=== PATIENT | female | born 1945 | race Caucasian/White ===

== ENCOUNTER → 2023-08-21 14:57 | Outpatient (REF) | payer OTHER, SELFPAY | LOC: RAD 14:57 | PROVIDERS: ATTENDING PHYSICIAN Advanced Practice Midwife; FAMILY PHYSICIAN Family Medicine | DX: N95.0 Postmenopausal bleeding (principal) | CPT/HCPCS: 76830 ==

== ENCOUNTER → 2023-09-11 13:03 | Outpatient (REF) | payer OTHER, SELFPAY | LOC: DHVS 13:03 | PROVIDERS: ATTENDING PHYSICIAN Surgery Vascular Surgery; FAMILY PHYSICIAN Family Medicine | DX: I77.0 Arteriovenous fistula, acquired (principal) | CPT/HCPCS: 93990 ==

== ENCOUNTER → 2023-09-21 14:50 | Outpatient (REF) | payer OTHER, SELFPAY | LOC: RAD 14:50 | PROVIDERS: ATTENDING PHYSICIAN Obstetrics & Gynecology Gynecologic Oncology; FAMILY PHYSICIAN Family Medicine | DX: D63.1 Anemia in chronic kidney disease (principal); N18.30 Chronic kidney disease, stage 3 unspecified; C54.1 Malignant neoplasm of endometrium; I48.0 Paroxysmal atrial fibrillation; J44.9 Chronic obstructive pulmonary disease, unspecified | CPT/HCPCS: 71250; 74176 ==

== ENCOUNTER 2023-09-23 06:07 | Day surgery (SDC) | payer OTHER, SELFPAY ==
--- NOTE | 2023-09-16 14:14 | PTCARENOTE ---
Abnormal ECG OK per Dr. Barcenas.
[2023-09-23] VITALS (10 sets, daily range): BP systolic 86–167; BP diastolic 41–111; BMI 36.6
[2023-09-23 06:57] LABS: Hematocrit 29.9 % (37.0-47.0); Hemoglobin 9.8 g/dL (12.0-16.0); Mean Corp Hgb Conc. 32.8 g/dL (33.0-37.0); Mean Corpuscular Hgb 35.3 pg (27.0-31.0); Mean Corpuscular Volume 107.6 fL (81.0-99.0); Platelet Count 157 10^3/uL (130-400); Red Blood Cell Count 2.78 10^6/uL (4.20-5.40); Red Cell Dist. Width 15.2 % (11.5-14.5); White Blood Cell Count 7.5 10^3/uL (4.8-10.8)
--- NOTE | 2023-09-23 06:58 | W.SUR.PREOP ---
Pre-Operative Surgical Note
-
I have examined this patient prior to the performance of the scheduled procedure.
The patient's condition is unchanged from the time of the current History and
Physical and the patient is able to undergo the scheduled procedure.
[2023-09-23 07:06] LABS: INR 1.31; PT 16.1 Sec (11.4-14.6)
[2023-09-23 07:21] LABS: Blood Urea Nitrogen 27 mg/dl (7-17); Calcium 8.9 mg/dl (8.4-10.2); Carbon Dioxide 33 mmol/L (22-30); Estimated Creatinine Clearance 10 ml/min; Glucose 98 mg/dl (70-99); Potassium 5.1 mmol/L (3.5-5.1); Sodium 132 mmol/L (135-145); eGFR 9.18
[2023-09-23 07:30] LABS: Chloride 94 mmol/L (98-107)
--- NOTE | 2023-09-23 08:24 | W.SUR.POST ---
Surgical Immediate Post Op
Note
Pre Op Diagnosis: ESRD
Post Op Diagnosis: ESRD
Procedure Performed: Left upper extremity fistulogram and central venogram with angioplasty to in-stent stenosis and outflow vein stenosis
Primary Surgeon: Josep Rae MD
Secondary Surgeons: N/A
Anesthesia: GETA
Estimated Blood Loss: Less than 5 cc
Fluids: See anesthesia flowsheet
Drains/Shunts: N/A
Specimens/Cultures: N/A
Doppler/Duplex/Angio (Y/N): Y
Complications: None
Operative Findings: Positive thrill following fistulogram
[2023-09-23] MEDS: DILAUDID 0.5 MG IV (08:53)
--- NOTE | 2023-09-23 09:06 | OR.RPT ---
Operative Report
Operative Report
PROCEDURE DATE: 09/23/2023
Preoperative diagnosis:
1. End-stage renal disease on hemodialysis.
2. Prolonged bleeding after hemodialysis, outflow vein stenosis.
Postoperative diagnosis: Same
Procedure:
1. Left upper extremity fistulogram and central venogram.
2. Balloon angioplasty of outflow vein/in-stent restenosis with 8 mm angioplasty balloon.
Surgeon: Butch
Histology Teacher: None
Complications: None
Anesthesia: General, LMA
Fluoroscopy:
2.6 min
8 mGy
1.61 Gy.cm2
Indications for procedure:
Patient on hemodialysis for end-stage renal disease. Prolonged bleeding after hemodialysis. Prior placed stent, prior angioplastied as well. Concern for recurrent stenosis at that location or in that vicinity. Ultrasound indicated that as well.
Risk/benefits/alternatives of fistulogram fully discussed. Patient understood all wish to proceed.
Description of procedure:
Patient was identified, brought to the operating room. Placed on the table in the supine position. After the adequate administration of anesthesia, the patient was prepped and draped in the standard surgical fashion. A standard preoperative
timeout was undertaken and everybody was in agreement with the plan.
The left upper extremity fistula was punctured and a central facing direction under direct duplex ultrasound guidance using micropuncture kit. I initially difficulty advancing my 0.035 inch wire. I therefore obtained a fistulogram through the
micropuncture sheath. This demonstrated there was a severe stenosis just beyond the micropuncture sheath leading into the stent area. In addition at the edge of the stent distally there was a severe stenosis leading into the che[place]hue[place] vein.
Therefore I then advanced my 0.035 inch wire as far as I could (somewhat coiled). I then exchanged for a 6 Tajik sheath. I gave the patient 3000 units of intravenous heparin. I then used a glide catheter and a flopping of hydrophilic wire. I
was then able to gain more central access/traverse the area of severe stenosis. I advanced my catheter. Perform central venogram that demonstrated patent central veins with no evidence of central venous stenosis. At this point I exchanged for a
0.035 inch Storq wire. I then performed balloon angioplasty of the stenotic area with an 8 mm angioplasty balloon. (8 mm x 6 cm angioplasty balloon with 2 overlapping inflations). I was able to completely resolve the waist at both inflations with
the balloon. Completion angiogram now demonstrated excellent result with complete resolution of the stenoses. At this point is very satisfied. I then compressed the fistula and obtained a reflux fistulogram. This demonstrated a widely patent
arterial anastomosis. At this point is very satisfied. My wires and catheters were all withdrawn. A 4-0 Monocryl pursestring stitch was placed around the sheath entry site and this was tied down as the sheath was withdrawn. Manual pressure was
also applied to the puncture site. Hemostasis was achieved. The patient tolerated the procedure well.
== END 2023-09-23 10:23 | disposition home or self-care (01) ==
LOC: CATH 06:07
PROVIDERS: ATTENDING PHYSICIAN Surgery Vascular Surgery; FAMILY PHYSICIAN Family Medicine; OTHER PHYSICIAN Internal Medicine
DX: T82.856A Stenosis of peripheral vascular stent, initial encounter (principal); Y83.2 Surgical operation with anastomosis, bypass or graft as the cause of abnormal reaction of the patient, or of later complication, without mention of misadventure at the time of the procedure; Z87.891 Personal history of nicotine dependence; I13.2 Hypertensive heart and chronic kidney disease with heart failure and with stage 5 chronic kidney disease, or end stage renal disease; N18.6 End stage renal disease; I50.9 Heart failure, unspecified; Z99.2 Dependence on renal dialysis
CPT/HCPCS: 36902; 80048; 85027; 85610; 85730; C1725; C1769; C1894; Q9967

== ENCOUNTER → 2023-09-28 09:46 | Outpatient (REF) | payer OTHER, SELFPAY | LOC: PET 09:46 | PROVIDERS: ATTENDING PHYSICIAN Obstetrics & Gynecology Gynecologic Oncology | DX: C54.1 Malignant neoplasm of endometrium (principal) | CPT/HCPCS: 78815; A9552 ==

== ENCOUNTER 2023-09-29 14:43 | Inpatient (IN) | payer OTHER, SELFPAY ==
[2023-09-29] VITALS (10 sets, daily range): BP systolic 100–160; BP diastolic 57–82; BMI 42.6; BMI 41.3
--- NOTE | 2023-09-29 10:57 | ED.GENMED ---
History of Present Illness
<Haydee Mallory AD WRITER - Last Filed: 09/29/23 15:49>
General
Chief Complaint: Breathing Problem
Source: patient and family (Daughter at bedside)
Exam Limitations: none
Time Seen by Provider: 09/29/23 10:53
Nursing documentation reviewed up to this point in time: agreed with
Travel History
Have you had any contact with someone who has COVID-19?: No
Do you have any symptoms of coronavirus? Fever > 100 degrees, chills, cough, shortness of breath, sore throat, loss of taste or smell, muscle aches, or headache?: Yes
Symptoms:: cough.
History of Present Illness
History of Present Illness:
78-year-old female from home with history of CVA, ICH, COPD on home oxygen, A-fib on Eliquis, CHF, HTN, hemodialysis, hypothyroid, endometrial cancer diagnosed this year, left upper extremity dialysis shunt, LUE fistulogram and venogram with balloon
angioplasty of the outflow vein/in-stent restenosis on 09/23/2023 presents stating she has had increasing cough for the past week and past few days it has become productive with brownish-yellow phlegm. Her breathing has become more labored even
sitting and washing herself. She denies fever or chills. Denies nausea or vomiting.
She was supposed to go to dialysis today but she didn't feel well enough so came here for evaluation.
Past History
<Haydee Mallory AD WRITER - Last Filed: 09/29/23 15:49>
Past History
ED Past Medical History: Arrthythmia (Atrial fib), CHF, COPD, HTN, Renal failure, Hypothyroidism, Psychiatric (Depression) and Other (Chronic back pain, kidney stones, arthritis)
ED Past Surgical History: Cholecystectomy and Orthopedic (Left arm Carpal tunnel surgery, laminectomy L5 , and again for scar tissue)
Social History
Tobacco: Former smoker
Alcohol: None
Drug: None
Personal:
Living: with family
Employment: Retired
Family History
Family History: Other (Mother with kidney cancer)
Review of Systems
<Haydee Mallory, AD WRITER - Last Filed: 09/29/23 15:49>
Review of Systems
Allergies reviewed?: Yes
All Other Systems: ROS reviewed and negative except as documented in HPI and ROS
Constitutional: Reports fatigue; Denies fever
Respiratory: Reports cough and trouble breathing
Cardiac: Denies chest pain
ABD/GI: Denies abdominal pain, nausea, vomiting or diarrhea
: Denies dysuria, frequency or difficulty voiding
Musculoskeletal: Reports no symptoms
Skin: Reports other (Blister on foot)
Neurological: Reports no symptoms
Phy Exam
<Haydee V. Day, AD WRITER - Last Filed: 09/29/23 15:49>
Physical Exam
Physical Exam:
GENERAL: No acute distress. A&Ox3. Morbid obesity
CONSTITUTIONAL: Afebrile.
EYES: Clear, conjunctivae normal
ENMT: moist mucus membranes, Pharynx nl
RESPIRATORY: Regular respirations, nonlabored, lungs clear.
CARDIOVASCULAR: Regular rate and rhythm, tachycardia, no murmurs, no rubs.
GI: Soft, nontender, normal BS
MUSCULOSKELETAL: Moves with ease. Well perfused.
SKIN: Warm, dry, pink
PSYCH: Normal mood and affect. Well kept, interactive and appropriate
NEUROLOGIC: Awake, alert and oriented. No focal neurological deficits
Scores
<Haydee Mallory, AD WRITER - Last Filed: 09/29/23 15:49>
Heart Failure Risk
Heart Failure Risk Score: Not Applicable
Course
<Haydee V. [place], AD WRITER - Last Filed: 09/29/23 15:49>
Orders/Labs/Results
Orders:
Orders
09/29/23 Breakfast
Cholesterol Lowering
Fluid Restriction: 1200 mL/day (40 oz)
Cholesterol Lowering: Sodium, 2 Gram
09/29/23 11:24
CR Chest - 2 Views Urgent
Comment:
Reason For Exam: productive cough
09/29/23 11:38
Complete Blood Count/With Diff Urgent
Comprehensive Metabolic Panel Urgent
NT-proBNP Urgent
Comment: ADD ON
09/29/23 12:23
Add On- LAB Urgent
Tests Added?: BNP
09/29/23 12:25
Potassium Urgent
09/29/23 12:33
Ipratropium/Albuterol Sulfate [Duoneb] 3 ml INH R NOW STA
09/29/23 12:35
Electrocardiogram (*1) Urgent
Reason for Study: Abnormal EKG
EKG- Treatment ONCE
09/29/23 12:38
NEPHROLOGY CONSULT Urgent
Consulting Provider: Cameron Crow
Was physician already notified: Yes
Reason for consult: needs dialysis
09/29/23 13:02
Lactic Acid Q4H
Comment: CANCEL 2nd LACTIC ACID IF 1st LACTIC ACID IS LESS THAN 2
Blood Culture Q30M
JORDY Source: Blood/Venous
Specimen Description:
Blood Culture Q30M
JORDY Source: Blood/Venous
Specimen Description:
09/29/23 13:33
Admit/Transfer Patient As Directed
Co-Sign Provider:
Level of Care: Inpatient admission
Assign to:: Telemetry
Physician / Group: alexa foster
Diagnosis: CHF
Reason for Telemetry: Subacute Heart Failure
Date to Stop Telemetry: 10/01/23
Time to Stop Telemetry: 11:00
Reason for Hospitalization: chf
Expected length of stay greater than two midnights?: Yes
ELOS- Estimated Length of Stay in days: 3
I certify the patient meets the requirements for IP care: Yes
09/29/23 13:35
Code Status As Directed
Resuscitation Status: Do not resuscitate
Reached after discussion with pt or family/Healthcare POA: Yes
DNR Bracelet Application ONCE
09/29/23 13:44
Hemodialysis treatment As Directed
Treatment date:: 09/30/23
Treatment type: Hemodialysis
Ultrafiltration (kg): 2.5kg
Treatment time (duration): 3 hours 30 minutes
Use dialysis access:: AVF
Dialyzer:: Optiflux 160
Blood flow rate minimum: 350
Blood flow rate maximum: 400
Dialysis flow rate: 600 mL/min
Dialysate temperature: 35 degrees Celsius
Sodium (Na): 140
Potassium (K): 2
Calcium (Ca): 2.5
Bicarbonate (HCO3): 35
09/29/23 13:55
COVID-19 Antigen Stat
Source: Nasal Swab
Influenza A+B Rapid Molecular Routine
JORDY Source: Nasal Swab
Specimen Description:
09/29/23 14:00
Flush (0.9% Sodium Chloride) [Flush (Nss)] See Dose Instructions IV PER PROTOCOL
09/29/23 15:43
Ipratropium/Albuterol Sulfate [Duoneb] 3 ml INH R Q4HPRN PRN
Ketoconazole [Nizoral 2% Cream] 1 applic TOPICAL DAILY PRN
Lidocaine 2.5%/Prilocaine 2.5% [Emla Cream] DOSE gram TOPICAL DAILY PRN
Morphine Sulfate Extended Rel. [Ms Contin (Extended Release)] 15 mg PO Q12H
Oxycodone [Roxicodone] 5 mg PO QID@08,14,20,0200
tolnaftate 1 applic TOPICAL BID PRN
09/29/23 15:43
HF DIETARY CONSULT Routine
HF EDUCATOR CONSULT Routine
Comment:
Sputum Culture [Respiratory Culture/Gram Stain] Routine
JORDY Source: Sputum
Specimen Description:
Activity As Directed
Activity Level: As Tolerated
Intake/ Output As Directed
Frequency: Per unit guidelines
Patient Education As Directed
Type: CHF folder
Comment: give on admission. Document in Interdisciplinary Education record
Sleep Apnea Assessment by RN As Directed
Comment:
Physician Instructions:
Vital Signs As Directed
Frequency: Other
Additional Instructions:: Q12 or per unit guidelines if more frequent.
Weight As Directed
Frequency: Daily
Type of Scale: Standing Scale
Comment: Daily morning weight. If unable to stand, use balanced bed scale.
Weight As Directed
Frequency: Once
Type of Scale: Standing Scale
Comment: Upon Admission. If unable to stand, use balanced bed scale.
Pulse Ox/cont/shift [RESP] Routine
Quantity: 1
Special Instructions: Daily pulse oximetry at rest. If greater than 92% at rest also obtain pulse oximetry
while ambulating as tolerated.
Pt Eval And Treat Routine
Activity Level: As Tolerated
09/29/23 20:00
Apixaban [Eliquis] 5 mg PO BID
Calcium Acetate [Phoslo] 1,334 mg PO BID
Carvedilol [Coreg] 3.125 mg PO BID
Duloxetine Delayed Release [Cymbalta Delayed Release] 60 mg PO BID
09/29/23 22:00
Renal Cap [Nephrocap] 1 capsule PO HS
09/30/23 06:00
Basic Metabolic Panel IN AM
Cardiovascular Evaluation IN AM
Complete Blood Count/No Diff IN AM
Sikwb-Qorh-Ypgndap IN AM
Magnesium IN AM
TSH Reflex To Free T4 IN AM
09/30/23 07:00
Complete Blood Count/No Diff Urgent
Electrolytes Urgent
Comment: pre-Hemodialysis lab, to be drawn by HD nurse
Levothyroxine [Synthroid] 100 mcg PO DAILY@0700
09/30/23 08:00
Albumin Human 25% 50 ml [Flexbumin 25% For Hemodialysis] 12.5 grams IV HD-Q1HPRN PRN
Docusate Sodium [Colace] 100 mg PO DAILY
Epoetin Paco-Epbx [Retacrit] 10,000 units IV HD-ONCE ONE
Mannitol 12.5 grams IV HD-Q1HPRN PRN
Omeprazole Suspension [Prilosec Baby Oral Suspension] 20 mg PO DAILY
Polyethylene Glycol Powder [Miralax] 17 grams PO DAILY
Sodium Chloride [Sodium Chloride 4 Meq/ml For Hemodialysis] 10 ml IV HD-Q1HPRN PRN
10/01/23 06:00
Basic Metabolic Panel IN AM
Complete Blood Count/No Diff IN AM
10/01/23 11:00
DC Protocol for Telemetry ONCE
10/02/23 06:00
Basic Metabolic Panel IN AM
Complete Blood Count/No Diff IN AM
10/03/23 06:00
Complete Blood Count/No Diff IN AM
Abnormal Lab Results
09/29/23
11:38
RBC 2.74 L 10^6/uL
(4.20-5.40)
Hgb 9.6 L g/dL
(12.0-16.0)
Hct 28.6 L %
(37.0-47.0)
MCV 104.4 H fL
(81.0-99.0)
MCH 35.0 H pg
(27.0-31.0)
RDW 15.3 H %
(11.5-14.5)
Abs Immat Gran (auto) 0.1 H 10^3/uL
(0-0.05)
Absolute Neuts (auto) 7.4 H 10^3/uL
(1.4-6.5)
Absolute Lymphs (auto) 1.0 L 10^3/uL
(1.2-3.4)
Absolute Monos (auto) 0.8 H 10^3/uL
(0.1-0.6)
Neutrophils % 79.4 H %
(42.2-75.2)
Lymphocytes % 10.5 L %
(20.5-51.1)
Sodium 128 L mmol/L
(135-145)
Chloride 89 L mmol/L
(98-107)
BUN 67 H mg/dl
(7-17)
Creatinine 7.4 H* mg/dL
(0.6-1.0)
Glucose 128 H mg/dl
(70-99)
Total Bilirubin 1.4 H mg/dl
(0.2-1.3)
AST 52 H U/L
(14-36)
Alkaline Phosphatase 133 H U/L
(38-126)
09/29/23 11:38
09/29/23 12:25
Vital Signs
Initial and Last Documented VS:
Initial Vital Signs
Temp Pulse Resp BP Pulse Ox
98 F 123 24 160/82 98
09/29/23 10:19 09/29/23 10:19 09/29/23 10:19 09/29/23 10:19 09/29/23 10:19
Last Documented Vital Signs
Temp Pulse Resp BP Pulse Ox
98 F 93 18 107/67 100
09/29/23 10:19 09/29/23 14:33 09/29/23 14:33 09/29/23 14:33 09/29/23 14:33
Leidalt;Maulik Riggins DO - Last Filed: 09/29/23 12:40>
Orders/Labs/Results
Orders:
Orders
09/29/23 Breakfast
Cholesterol Lowering
Fluid Restriction: 1200 mL/day (40 oz)
Cholesterol Lowering: Sodium, 2 Gram
09/29/23 11:24
CR Chest - 2 Views Urgent
Comment:
Reason For Exam: productive cough
09/29/23 11:38
Complete Blood Count/With Diff Urgent
Comprehensive Metabolic Panel Urgent
NT-proBNP Urgent
Comment: ADD ON
09/29/23 12:23
Add On- LAB Urgent
Tests Added?: BNP
09/29/23 12:25
Potassium Urgent
09/29/23 12:33
Ipratropium/Albuterol Sulfate [Duoneb] 3 ml INH R NOW STA
09/29/23 12:35
Electrocardiogram (*1) Urgent
Reason for Study: Abnormal EKG
EKG- Treatment ONCE
09/29/23 12:38
NEPHROLOGY CONSULT Urgent
Consulting Provider: Cameron Crow
Was physician already notified: Yes
Reason for consult: needs dialysis
09/29/23 13:02
Lactic Acid Q4H
Comment: CANCEL 2nd LACTIC ACID IF 1st LACTIC ACID IS LESS THAN 2
Blood Culture Q30M
JORDY Source: Blood/Venous
Specimen Description:
Blood Culture Q30M
JORDY Source: Blood/Venous
Specimen Description:
09/29/23 13:33
Admit/Transfer Patient As Directed
Co-Sign Provider:
Level of Care: Inpatient admission
Assign to:: Telemetry
Physician / Group: alexa foster
Diagnosis: CHF
Reason for Telemetry: Subacute Heart Failure
Date to Stop Telemetry: 10/01/23
Time to Stop Telemetry: 11:00
Reason for Hospitalization: chf
Expected length of stay greater than two midnights?: Yes
ELOS- Estimated Length of Stay in days: 3
I certify the patient meets the requirements for IP care: Yes
09/29/23 13:35
Code Status As Directed
Resuscitation Status: Do not resuscitate
Reached after discussion with pt or family/Healthcare POA: Yes
DNR Bracelet Application ONCE
09/29/23 13:44
Hemodialysis treatment As Directed
Treatment date:: 09/30/23
Treatment type: Hemodialysis
Ultrafiltration (kg): 2.5kg
Treatment time (duration): 3 hours 30 minutes
Use dialysis access:: AVF
Dialyzer:: Optiflux 160
Blood flow rate minimum: 350
Blood flow rate maximum: 400
Dialysis flow rate: 600 mL/min
Dialysate temperature: 35 degrees Celsius
Sodium (Na): 140
Potassium (K): 2
Calcium (Ca): 2.5
Bicarbonate (HCO3): 35
09/29/23 13:55
COVID-19 Antigen Stat
Source: Nasal Swab
Influenza A+B Rapid Molecular Routine
JORDY Source: Nasal Swab
Specimen Description:
09/29/23 14:00
Flush (0.9% Sodium Chloride) [Flush (Nss)] See Dose Instructions IV PER PROTOCOL
09/29/23 15:43
Ipratropium/Albuterol Sulfate [Duoneb] 3 ml INH R Q4HPRN PRN
Ketoconazole [Nizoral 2% Cream] 1 applic TOPICAL DAILY PRN
Lidocaine 2.5%/Prilocaine 2.5% [Emla Cream] DOSE gram TOPICAL DAILY PRN
Morphine Sulfate Extended Rel. [Ms Contin (Extended Release)] 15 mg PO Q12H
Oxycodone [Roxicodone] 5 mg PO QID@08,14,20,0200
tolnaftate 1 applic TOPICAL BID PRN
09/29/23 15:43
HF DIETARY CONSULT Routine
HF EDUCATOR CONSULT Routine
Comment:
Sputum Culture [Respiratory Culture/Gram Stain] Routine
JORDY Source: Sputum
Specimen Description:
Activity As Directed
Activity Level: As Tolerated
Intake/ Output As Directed
Frequency: Per unit guidelines
Patient Education As Directed
Type: CHF folder
Comment: give on admission. Document in Interdisciplinary Education record
Sleep Apnea Assessment by RN As Directed
Comment:
Physician Instructions:
Vital Signs As Directed
Frequency: Other
Additional Instructions:: Q12 or per unit guidelines if more frequent.
Weight As Directed
Frequency: Daily
Type of Scale: Standing Scale
Comment: Daily morning weight. If unable to stand, use balanced bed scale.
Weight As Directed
Frequency: Once
Type of Scale: Standing Scale
Comment: Upon Admission. If unable to stand, use balanced bed scale.
Pulse Ox/cont/shift [RESP] Routine
Quantity: 1
Special Instructions: Daily pulse oximetry at rest. If greater than 92% at rest also obtain pulse oximetry
while ambulating as tolerated.
Pt Eval And Treat Routine
Activity Level: As Tolerated
09/29/23 20:00
Apixaban [Eliquis] 5 mg PO BID
Calcium Acetate [Phoslo] 1,334 mg PO BID
Carvedilol [Coreg] 3.125 mg PO BID
Duloxetine Delayed Release [Cymbalta Delayed Release] 60 mg PO BID
09/29/23 22:00
Renal Cap [Nephrocap] 1 capsule PO HS
09/30/23 06:00
Basic Metabolic Panel IN AM
Cardiovascular Evaluation IN AM
Complete Blood Count/No Diff IN AM
Pjitx-Reme-Zubgwop IN AM
Magnesium IN AM
TSH Reflex To Free T4 IN AM
09/30/23 07:00
Complete Blood Count/No Diff Urgent
Electrolytes Urgent
Comment: pre-Hemodialysis lab, to be drawn by HD nurse
Levothyroxine [Synthroid] 100 mcg PO DAILY@0700
09/30/23 08:00
Albumin Human 25% 50 ml [Flexbumin 25% For Hemodialysis] 12.5 grams IV HD-Q1HPRN PRN
Docusate Sodium [Colace] 100 mg PO DAILY
Epoetin Paco-Epbx [Retacrit] 10,000 units IV HD-ONCE ONE
Mannitol 12.5 grams IV HD-Q1HPRN PRN
Omeprazole Suspension [Prilosec Baby Oral Suspension] 20 mg PO DAILY
Polyethylene Glycol Powder [Miralax] 17 grams PO DAILY
Sodium Chloride [Sodium Chloride 4 Meq/ml For Hemodialysis] 10 ml IV HD-Q1HPRN PRN
10/01/23 06:00
Basic Metabolic Panel IN AM
Complete Blood Count/No Diff IN AM
10/01/23 11:00
DC Protocol for Telemetry ONCE
10/02/23 06:00
Basic Metabolic Panel IN AM
Complete Blood Count/No Diff IN AM
10/03/23 06:00
Complete Blood Count/No Diff IN AM
Abnormal Lab Results
09/29/23
11:38
RBC 2.74 L 10^6/uL
(4.20-5.40)
Hgb 9.6 L g/dL
(12.0-16.0)
Hct 28.6 L %
(37.0-47.0)
MCV 104.4 H fL
(81.0-99.0)
MCH 35.0 H pg
(27.0-31.0)
RDW 15.3 H %
(11.5-14.5)
Abs Immat Gran (auto) 0.1 H 10^3/uL
(0-0.05)
Absolute Neuts (auto) 7.4 H 10^3/uL
(1.4-6.5)
Absolute Lymphs (auto) 1.0 L 10^3/uL
(1.2-3.4)
Absolute Monos (auto) 0.8 H 10^3/uL
(0.1-0.6)
Neutrophils % 79.4 H %
(42.2-75.2)
Lymphocytes % 10.5 L %
(20.5-51.1)
Sodium 128 L mmol/L
(135-145)
Chloride 89 L mmol/L
(98-107)
BUN 67 H mg/dl
(7-17)
Creatinine 7.4 H* mg/dL
(0.6-1.0)
Glucose 128 H mg/dl
(70-99)
Total Bilirubin 1.4 H mg/dl
(0.2-1.3)
AST 52 H U/L
(14-36)
Alkaline Phosphatase 133 H U/L
(38-126)
09/29/23 11:38
09/29/23 12:25
Vital Signs
Initial and Last Documented VS:
Initial Vital Signs
Temp Pulse Resp BP Pulse Ox
98 F 123 24 160/82 98
09/29/23 10:19 09/29/23 10:19 09/29/23 10:19 09/29/23 10:19 09/29/23 10:19
Last Documented Vital Signs
Temp Pulse Resp BP Pulse Ox
98 F 93 18 107/67 100
09/29/23 10:19 09/29/23 14:33 09/29/23 14:33 09/29/23 14:33 09/29/23 14:33
<Haydee Mallory AD WRITER - Last Filed: 09/29/23 15:49>
MDM/Problems Addressed
Differential Diagnosis Includes:
PNA, COPD exacerbation
MDM/Problems Addressed:
78-year-old female from home with history of CVA, ICH, chronic diastolic CHF, COPD on home oxygen, A-fib on Eliquis, CHF, HTN, hemodialysis, hypothyroid, endometrial cancer diagnosed this year, left upper extremity dialysis shunt, LUE fistulogram
and venogram with balloon angioplasty of the outflow vein/in-stent restenosis on 09/23/2023 presents stating she has had increasing cough for the past week and past few days it has become productive with brownish-yellow phlegm. Her breathing has
become more labored even sitting and washing herself. She denies fever or chills. Denies nausea or vomiting.
She was supposed to go to dialysis today but she didn't feel well enough so came here for evaluation.
Afebrile, NAD
Patient presents to the Emergency Department with ____SOB, productive cough
Number and Complexity of Problems Addressed at the Encounter
� Chronic conditions affecting care: COPD
� Acute Exacerbation and/or Progression of Chronic Illness:
� Differential Diagnosis includes: PNA, COPD exacerbation
Amount and/or Complexity of Data to be Reviewed and Analyzed
� I performed an independent evaluation of and my interpretation is:
EKG:
CT:
Xrays: Radiology report read: IMPRESSION: No active cardiopulmonary disease.
There is stable elevation of the right hemidiaphragm with compressive atelectasis at the right lung base
Laboratory Studies: CBC with no clinically significant abnormality
CMP with hyponatremia with a sodium of 128, BUN/creatinine 67/7.4 is supposed to be dialyzed today,
Other:
� Review of other/old records reveals: Previous CHF with productive cough and hemoptysis. Will Check BNP
� Clinical information was obtained by an independent historian: Pt and daughter at bedside.
� Prescriptions/Medications Considered but not given:
� Further testing considered but not performed:
Risk of Complications and/or Morbidity or Mortality of Patient Management
� Social determinants of health affecting care: Good family support
� Discussion with other providers (PCP, Hospitalists, Consultants, etc): Security Clerk Dr. Crow, Hospitalist notified of admission.
� Escalation of care including admission/observation vs risk of discharge considered: Due to her feeling more short of breath, needing dialysis, hyponatremic, will admit
<Haydee Mallory AD WRITER - Last Filed: 09/29/23 15:49>
*Critical Care Note
Total Time (30-74mins, 75-104mins- exclusive of procedures): Not Applicable
ED Attending Note
<Haydee Mallory AD WRITER - Last Filed: 09/29/23 15:49>
-
Portions of this chart may have been created with voice recognition software.� Occasional wrong word or��sound alike� substitutions may have occurred due to the inherent limitations of voice recognition software.
<Maulik Riggins DO - Last Filed: 09/29/23 12:40>
ED Attending Note
I performed the substantive portion of visit, reviewed & personally made and approve the management plan that is documented in note by myself or JABIER.: Yes
ED Attending Note:
Seen with AD WRITER examined independently 78-year-old female chronic lung disease ESRD Thursday did not go to dialysis today felt too short of breath, did not use her nebs, here she is chronic ill-appearing looks dyspneic, labs are noted
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
Discharge Plan
Departure
Patient Disposition: Admit
Date of Disposition: 09/29/23
Time of Disposition: 12:38
Admit to: Telemetry
Presentation/result/management discussed w/ accepting MD/DO: Hospitalist
Condition: Fair
Discharge Problem:
Acute hyponatremia, ESRD needing dialysis, KAMARA (dyspnea on exertion)
Interventions
Interventions:
*Risk Screen - Suicide Last Done: 09/29/23 10:19
*General Assessment Last Done: 09/29/23 10:19
*Neglect/Abuse Screening Last Done: 09/29/23 10:19
ED- Fall Risk Assessment Last Done: 09/29/23 11:20
ED- Cardiac Assessment Last Done: 09/29/23 11:20
ED- Pulmonary Assessment Last Done: 09/29/23 11:20
[2023-09-29 11:44] LABS: % Basophils 0.3 % (0-2); % Immature Granulocytes 0.5 % (0-0.5); % Lymphocytes 10.5 % (20.5-51.1); % Monocytes 8.3 % (1.7-9.3); % Neutrophils 79.4 % (42.2-75.2); Absolute Eosinophils 0.1 10^3/uL (0-0.7); Absolute Immature Granulocytes 0.1 10^3/uL (0-0.05); Absolute Monocytes 0.8 10^3/uL (0.1-0.6); Absolute Neutrophils 7.4 10^3/uL (1.4-6.5); Hematocrit 28.6 % (37.0-47.0); Hemoglobin 9.6 g/dL (12.0-16.0); Mean Corp Hgb Conc. 33.6 g/dL (33.0-37.0); Mean Corpuscular Volume 104.4 fL (81.0-99.0); Mean Platelet Volume 9.7 fL (7.4-10.4); Nucleated Red Blood Cells % 0 %; Platelet Count 136 10^3/uL (130-400); Red Blood Cell Count 2.74 10^6/uL (4.20-5.40); Red Cell Dist. Width 15.3 % (11.5-14.5); White Blood Cell Count 9.4 10^3/uL (4.8-10.8)
[2023-09-29 12:14] LABS: ALT (SGPT) 14 U/L (0-35); AST (SGOT) 52 U/L (14-36); Albumin 3.7 g/dl (3.5-5.0); Alkaline Phosphatase 133 U/L (38-126); Blood Urea Nitrogen 67 mg/dl (7-17); Calcium 8.8 mg/dl (8.4-10.2); Carbon Dioxide 29 mmol/L (22-30); Chloride 89 mmol/L (98-107); Glucose 128 mg/dl (70-99); Sodium 128 mmol/L (135-145); Total Bilirubin 1.4 mg/dl (0.2-1.3); Total Protein 7.3 g/dl (6.3-8.2); eGFR 5.19
[2023-09-29] MEDS: DUONEB 3 ML INH (12:54)
--- NOTE | 2023-09-29 13:06 | HPS.HSE ---
Family Physician
-
Family Physician: Cesar Whitmore
Chief Complaint
-
cough
sob
History of Present Illness
78-year-old female from home with history of CVA, ICH, COPD on home oxygen, A-fib on Eliquis, CHF, HTN, hemodialysis, hypothyroid, presents stating she has had increasing cough for the past week and past few days it has become productive with
brownish-yellow phlegm. stated sob worse with exertion. denied fever, chills, chest pain. denied KILPATRICK,dizzy or syncopal episode. denied abdominal pain, n,v, d. denied dysuria or hematuria.
received nebs in the ER. admitting for further management.
Medical History
Past Medical History
Past Medical History: Reports Other
Additional Past Medical History:
Peripheral vascular disease
Chronic pain syndrome
COPD
End-stage renal disease
Chronic hypoxic respiratory failure, O2 dependent
Hypertension
A-fib
Depression
Chronic diastolic heart failure
Hypothyroidism
Opioid dependence
Past Surgical History: Reports Other
Additional Past Surgical History:
Ruptured disc surgery x 2
Cholecystectomy
Social History
Tobacco: Non-smoker
Alcohol: None
Drug: None
Family History
Family History: Not pertinent
Allergies / Home Medications
Allergies reflects when Allergies were last updated in [employer].
Home Medications with original date entered in [employer]
Allergy/Medication List:
Allergies
Allergy/AdvReac Type Severity Reaction Status Date / Time
adhesive tape Allergy Rash Verified 09/23/23 06:27
Cephalosporins Allergy Unknown Verified 09/23/23 06:27
chlorhexidine Allergy Itching/SKIN Verified 09/23/23 06:27
ITCHING
gabapentin Allergy Elevated Verified 09/23/23 06:27
potassium
isopropyl alcohol Allergy Rash Verified 04/17/24 06:27
[From ChloraPrep Clear]
lisinopril Allergy lip Verified 09/23/23 06:27
swelling
Home Medications
levothyroxine 100 mcg tablet 100 mcg PO DAILY@0700 Thyroid 02/26/14
calcium acetate 667 mg tablet 1,334 mg PO BID Kidney Disease 11/26/20
duloxetine 30 mg capsule,delayed release 60 mg PO BID Neurological Condition 02/04/21
vitamin B complex and vitamin C no.20-folic acid 1 mg capsule (Renal Caps) 1 cap PO HS Kidney Disease 07/27/21
carvedilol 3.125 mg tablet 3.125 mg PO BID Heart Disease/Condition 03/05/22
apixaban 5 mg tablet (Eliquis) 5 mg PO BID Blood Clot Prevention/Tx 11/27/22
albuterol sulfate 2.5 mg/3 mL (0.083 %) solution for nebulization 2.5 mg inhalation R Q4HPRN PRN sob 12/11/22
docusate sodium 100 mg capsule (Colace) 100 mg PO DAILY Constipation 12/11/22
morphine 15 mg tablet,extended release 15 mg PO Q12H 04/17/23
polyethylene glycol 3350 17 gram oral powder packet (Miralax) 17 g PO DAILY 04/17/23
omeprazole 20 mg capsule,delayed release 20 mg PO DAILY 04/29/23
tolnaftate 1 % topical cream 1 applic topical BID PRN joint discomfort 04/29/23
ketoconazole 2 % topical cream 1 applic topical DAILY PRN rash on belly 06/20/23
lidocaine-prilocaine 2.5 %-2.5 % topical cream 1 applic topical DAILY PRN prior to port access 06/20/23
oxycodone 5 mg tablet 5 mg PO QID@08,14,20,0200 06/20/23
Medical Marijuana 1 applic topical DAILYPRN PRN mild pain 09/29/23
ipratropium 0.5 mg-albuterol 3 mg (2.5 mg base)/3 mL nebulization soln 3 ml inhalation R BIDPRN PRN sob 09/29/23
lorazepam 0.5 mg tablet 0.5 mg PO DAILYPRN PRN going for ct/mri test 09/29/23
Review of Systems
-
Constitutional: Reports No Symptoms
EENT: Reports No Symptoms
Respiratory: Reports Cough and Trouble Breathing
Cardiac: Reports No Symptoms
Abdomen/GI: Reports No Symptoms
: Reports No Symptoms
Musculoskeletal: Reports No Symptoms
Skin: Reports No Symptoms
Neurological: Reports No Symptoms
Endocrine: Reports No Symptoms
Hematologic/Lymphatic: Reports No Symptoms
Psych: Reports No Symptoms
Physical Exam
Vital Signs
Vital Signs
Temp Pulse Resp BP Pulse Ox
98 F 123 24 160/82 100
09/29/23 10:19 09/29/23 10:19 09/29/23 10:19 09/29/23 10:19 09/29/23 11:20
Physical Exam
General: Well Developed, Well Nourished and No Apparent Distress
HEENT: NormoCephalic, Moist mucous membranes and Atraumatic
Respiratory: Crackles
Cardiac: S1/S2 and Regular Rhythm; No Murmur or Rub
GI: Soft, Non Tender, Non Distended and Normal Bowel Sounds; No Organomegaly
Rectal: Deferred by Provider
Musculoskeletal: No Clubbing, No Cyanosis and No Edema
Skin: No Rash
Neuro: Nonfocal/grossly intact
Psych: Calm
Laboratory Results
-
09/29/23 11:38
Laboratory Results
Total Bilirubin 1.4 mg/dl (0.2-1.3) H 09/29/23 11:38
AST 52 U/L (14-36) H 09/29/23 11:38
ALT 14 U/L (0-35) 09/29/23 11:38
Alkaline Phosphatase 133 U/L (38-126) H 09/29/23 11:38
Data Reviewed
-
Diagnostic Radiology: Report Reviewed by me
Lab Data: Labs Reviewed by me
Impression/Plan
-
# cough/short of breath likely fluid overload
#likely diastolic heart failure exacerbation
#chronic hypoxic respiratory failure
#o2 dependant at home
-Chest x-ray with impression of no active cardiopulmonary disease.There is stable elevation of the right hemidiaphragm with compressive atelectasis at the right lung base
-Blood culture sent from ER
-obtain sputum culture
-fluid removal with HD
-fluid restriction.
-Echo 06/22 with EF 55 to 60%, no wall motion abnormality
-daily weight
-ctm
# End-stage renal disease/hyponatremia
-On dialysis Thursday
-Missed dialysis today
-calcium acetate continued
-renal caps continued
-Nephrology consulted
# Anemia of chronic kidney disease
-Hemoglobin 9.6
-No active bleeding
-Continue to monitor
#CHRONIC ATRIAL FIBRILLATION
-FAST FOOD ASSISTANT RESTAURANT MANAGER Eliquis
-FAST FOOD ASSISTANT RESTAURANT MANAGER Coreg
#ESSENTIAL HYPERTENSION
-FAST FOOD ASSISTANT RESTAURANT MANAGER Coreg
#CHRONIC PAIN SYNDROME
-chronic back pain with 2 unsuccessful surgeries per daughter
-morphine continued
-lidocaine continued
-cont prn oxycodone
-duloxetine continued
-PT/OT
#GERD
-Protonix continued
#Hypothyroidism
-Continue levothyroxine
#Prior history of CVA
-Continue Eliquis
#hxt of COPD
-not in acute exacerbation
-nebs prn for sob/wheezing
#DVT prophylaxis with Eliquis
DNR/DNI
[2023-09-29 13:20] LABS: Potassium 5.1 mmol/L (3.5-5.1)
[2023-09-29 13:24] LABS: Lactic Acid 1.1 mmol/L (0.7-2.0)
--- NOTE | 2023-09-29 13:39 | W.CON.NEPH ---
Consultation
-
Date/Time Consultation Requested: September 29, 2023 12 noon
Date/Time Consultation Performed: September 29, 2023 1:30 PM
Requesting Provider: Dr. Childress
Performing Provider: Dr. Crow
Reason for Consultation: ESRD
Medical History
Past Medical History
ESRD, left upper extremity AV fistula, COPD oxygen dependent, atrial fibrillation, hypertension, left carpal tunnel surgery, ureteral stenting, arthritis, cholecystectomy, depression, anemia, chronic right lung elevation, endometrial cancer,
Social History
Tobacco: Former Smoker
Alcohol: None
Family History
Family History: Not Pertinent
Allergies / Home Medications
Allergy/AdvReac Type Severity Reaction Status Date / Time
adhesive tape Allergy Rash Verified 09/23/23 06:27
Cephalosporins Allergy Unknown Verified 09/23/23 06:27
chlorhexidine Allergy Itching/SKIN Verified 09/23/23 06:27
ITCHING
gabapentin Allergy Elevated Verified 09/23/23 06:27
potassium
isopropyl alcohol Allergy Rash Verified 09/23/23 06:27
[From ChloraPrep Clear]
lisinopril Allergy lip Verified 09/23/23 06:27
swelling
�Medication �Instructions �Recorded �Confirmed �Type
levothyroxine 100 mcg tablet 100 mcg PO DAILY@0700 Thyroid 02/26/14 09/29/23 History
calcium acetate 667 mg tablet 1,334 mg PO BID Kidney Disease 11/26/20 09/29/23 History
duloxetine 30 mg capsule,delayed 60 mg PO BID Neurological Condition 02/04/21 09/29/23 History
release
vitamin B complex and vitamin C 1 cap PO HS Kidney Disease 07/27/21 09/29/23 History
no.20-folic acid 1 mg capsule
(Renal Caps)
carvedilol 3.125 mg tablet 3.125 mg PO BID Heart 03/05/22 09/29/23 History
Disease/Condition
apixaban 5 mg tablet (Eliquis) 5 mg PO BID Blood Clot 11/27/22 09/29/23 History
Prevention/Tx
albuterol sulfate 2.5 mg/3 mL 2.5 mg inhalation R Q4HPRN PRN sob 12/11/22 09/29/23 History
(0.083 %) solution for nebulization
docusate sodium 100 mg capsule 100 mg PO DAILY Constipation 12/11/22 09/29/23 History
(Colace)
morphine 15 mg tablet,extended 15 mg PO Q12H 04/17/23 09/29/23 History
release
polyethylene glycol 3350 17 gram 17 g PO DAILY 04/17/23 09/29/23 History
oral powder packet (Miralax)
omeprazole 20 mg capsule,delayed 20 mg PO DAILY 04/29/23 09/29/23 History
release
tolnaftate 1 % topical cream 1 applic topical BID PRN joint 04/29/23 09/29/23 History
discomfort
ketoconazole 2 % topical cream 1 applic topical DAILY PRN rash on 06/20/23 09/29/23 History
belly
lidocaine-prilocaine 2.5 %-2.5 % 1 applic topical DAILY PRN prior 06/20/23 09/29/23 History
topical cream to port access
oxycodone 5 mg tablet 5 mg PO QID@08,14,20,0200 06/20/23 09/29/23 History
Medical Marijuana 1 applic topical DAILYPRN PRN mild 09/29/23 09/29/23 History
pain
ipratropium 0.5 mg-albuterol 3 mg 3 ml inhalation R BIDPRN PRN sob 09/29/23 09/29/23 History
(2.5 mg base)/3 mL nebulization
soln
lorazepam 0.5 mg tablet 0.5 mg PO DAILYPRN PRN going for 09/29/23 09/29/23 History
ct/mri test
Review of Systems
-
Shortness of breath, slightly worse than previous. No chest pain. No fevers chills or sweats. She reports bleeding from her AV fistula postdialysis. The remainder of the complete review of systems was negative.
Physical Exam
Vital Signs
Vital Signs
Temp Pulse Resp BP Pulse Ox
98 F 123 24 160/82 100
09/29/23 10:19 09/29/23 10:19 09/29/23 10:19 09/29/23 10:19 09/29/23 11:20
Lab Results
WBC 9.4 10^3/uL (4.8-10.8) 09/29/23 11:38
RBC 2.74 10^6/uL (4.20-5.40) L 09/29/23 11:38
Hgb 9.6 g/dL (12.0-16.0) L 09/29/23 11:38
Hct 28.6 % (37.0-47.0) L 09/29/23 11:38
Plt Count 136 10^3/uL (130-400) 09/29/23 11:38
Sodium 128 mmol/L (135-145) L 09/29/23 11:38
Potassium 5.1 mmol/L (3.5-5.1) 09/29/23 12:25
Chloride 89 mmol/L (98-107) L 09/29/23 11:38
Carbon Dioxide 29 mmol/L (22-30) 09/29/23 11:38
BUN 67 mg/dl (7-17) H 09/29/23 11:38
Creatinine 7.4 mg/dL (0.6-1.0) H* 09/29/23 11:38
eGFR 5.19 09/29/23 11:38
Glucose 128 mg/dl (70-99) H 09/29/23 11:38
Calcium 8.8 mg/dl (8.4-10.2) 09/29/23 11:38
Albumin 3.7 g/dl (3.5-5.0) 09/29/23 11:38
Physical Exam
Patient is awake alert oriented and in no distress. Mood and affect were pleasant, insight and judgment were good. Pupils are equal round and reactive to light, extraocular movements are intact, sclera were anicteric. Hearing was normal, ears and
nose are intact. Neck was supple with trachea midline and no thyromegaly. Heart was regular rate and rhythm without rubs. Lower extremities without edema. Lungs were coarse with Rales to auscultation bilaterally and with normal excursion. Abdomen
was soft, nontender, with normal active bowel sounds, and no hepatosplenomegaly. Skin was without rash and with normal turgor.
Vascular Access: AVF (Left upper arm with thrill and bruit)
Data Reviewed
-
Radiology: Image Personally Visualized and interpreted (Chest x-ray on September 29, 2023 by my read shows elevated right hemidiaphragm, no acute disease)
CT Scan: Report Reviewed by me (CT abdomen pelvis on September 21, 2023 shows low lung volumes atelectasis, right adnexal cyst only.)
Medical Tests (Nuc Med, Echo etc): Image Personally Visualized and interpreted (EKG on 09/29/2023 by my read shows atrial fibrillation)
Labs: Labs Reviewed by me (Potassium 5.1, creatinine 7.4, sodium 128)
Old Records: Reviewed
Assessment/Plan
-
Impression:
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
COPD on chronic 2-3 L oxygen
Shortness of breath, hemoptysis
Hyperphosphatemia
Left upper extremity AV fistula
Hypertension
Atrial fibrillation
Anemia
Endometrial cancer
Plan:
She does not appear to be excessively volume overloaded at this time.
Her weights appear to be close to her outpatient weights. She is on approximately the same amount of oxygen at home.
Subjectively she does feel more short of breath however.
Her hemoglobin remains low but not significantly lower than prior.
Plan for dialysis tomorrow. She will then get dialysis as well.
She is for outpatient PET scan on Thursday for endometrial cancer staging.
We discussed at length her various options. Should her disease be contained locally, I think surgery would still be the best option though she would be high risk for anesthesia given her COPD.
[2023-09-29 14:08] LABS: NT-proBNP > 27000 pg/ml
[2023-09-29 14:17] LABS: COVID-19 Antigen Negative (Negative)
--- NOTE | 2023-09-29 15:28 | W.PN.UPDATE ---
Update Note
Progress Note Update
This note serves as supplemental to history and physical dated 09/28 by Kell West
I saw and examined the patient.
The CUSTOM FEED MILL OPERATOR or PA's note was reviewed and I agree with the note.
Comment: 78-year-old female from home with history of CVA, ICH, COPD on home oxygen, A-fib on Eliquis, CHF, HTN, hemodialysis, hypothyroid, now presenting for increasing cough for the past few days along with brownish�yellow phlegm. Patient states
is worse with exertion. Admits to sick contact including most of the family. Imaging grossly unremarkable for acute pathology, afebrile, normotensive, pulse 103, respiratory rate 22. 100% on 3 L has not missed dialysis today. Most likely has
viral URI although with productive sputum, will provide azithromycin. Dialysis as per renal. Assess improvement with interventions.
[2023-09-29] MEDS: ROXICODONE PO (16:07)
[2023-09-29] MEDS: ZITHROMAX INFUSION 250 IV (17:51)
[2023-09-29] MEDS: PHOSLO 1334 MG PO (17:52)
[2023-09-29] MEDS: MS CONTIN (EXTENDED RELEASE) 15 MG PO (20:10)
[2023-09-29] MEDS: ELIQUIS 5 MG PO (20:10)
[2023-09-29] MEDS: COREG 3.125 MG PO (20:11)
[2023-09-29] MEDS: CYMBALTA DELAYED RELEASE 60 MG PO (20:11)
[2023-09-29] MEDS: ROXICODONE 5 MG PO (20:14)
[2023-09-29] MEDS: NEPHROCAP 1 CAPSULE PO (21:35)
[2023-09-29] MEDS: ZOFRAN 4 MG IV (21:35)
[2023-09-30] MEDS: ROXICODONE 5 MG PO ×3 (01:05→13:50)
[2023-09-30 04:00] VITALS: BP 129/76
[2023-09-30] MEDS: SYNTHROID 100 MCG PO (04:39)
[2023-09-30 04:50] VITALS: BMI 37.8
[2023-09-30] MEDS: EMLA CREAM 1 GRAM TOPICAL (07:43)
[2023-09-30] MEDS: MS CONTIN (EXTENDED RELEASE) 15 MG PO (07:48)
[2023-09-30 07:50] VITALS: BP 104/71
[2023-09-30 08:57] LABS: Hematocrit 27.4 % (37.0-47.0); Hemoglobin 9.2 g/dL (12.0-16.0); Mean Corp Hgb Conc. 33.6 g/dL (33.0-37.0); Mean Corpuscular Hgb 35.4 pg (27.0-31.0); Mean Corpuscular Volume 105.4 fL (81.0-99.0); Platelet Count 145 10^3/uL (130-400); Red Cell Dist. Width 14.9 % (11.5-14.5); White Blood Cell Count 9.3 10^3/uL (4.8-10.8)
[2023-09-30 09:19] LABS: Estimated Creatinine Clearance 6 ml/min; eGFR 4.39
[2023-09-30 09:27] LABS: ALT (SGPT) < 10 U/L (0-35); AST (SGOT) 22 U/L (14-36); Albumin 3.3 g/dl (3.5-5.0); Alkaline Phosphatase 142 U/L (38-126); Blood Urea Nitrogen 79 mg/dl (7-17); Calcium 8.7 mg/dl (8.4-10.2); Carbon Dioxide 24 mmol/L (22-30); Chloride 90 mmol/L (98-107); Direct Bilirubin 1.2 mg/dl (0.0-0.4); Glucose 99 mg/dl (70-99); HDL Cholesterol 47 mg/dl; LDL Cholesterol, Calculated 58 mg/dl; Magnesium 2.3 mg/dl (1.6-2.3); Potassium 5.5 mmol/L (3.5-5.1); Sodium 127 mmol/L (135-145); Total Bilirubin 1.2 mg/dl (0.2-1.3); Total Cholesterol 130 mg/dl (50-199); Total Protein 6.5 g/dl (6.3-8.2); Triglyceride 125 mg/dl (10-149); Very Low Density Lipoprotein 25 mg/dl (0-30)
[2023-09-30] MEDS: RETACRIT 10000 UNITS IV (09:47)
--- NOTE | 2023-09-30 10:20 | W.PN.NEPH.HD ---
Assessment
-
Patient seen on dialysis
Systolic blood pressure stable at 121 at current ultrafiltration
Will provide dialysis again tomorrow to keep her on schedule
Progress Note - Hemodialysis
-
Date of Service: September 30, 2023
Duration: 30 minutes and 3 hours
Potassium Bath: 2
Calcium Bath: 2.5
Opti-Dialyzer: 160
Ultrafiltration: Other (2 kg)
Blood Flow: 400
Dialysate Flow: 600
Heparin: None
EPO: 10,000
[2023-09-30 11:04] LABS: TSH Reflex To Free T4 1.25 uIU/ml (0.47-4.68)
--- NOTE | 2023-09-30 12:08 | CM ---
Addendum entered by Aidee Mariee 09/30/23 13:08:
Referral sent to [facility] via [facility].
Direct fax # is [phone]
Original Note:
Chart reviewed and case discussed with Primary RN prior to visit. Jody is looking forward to discharge home with her daughter who will be coming to pick her up between 12:30-1PM. Jody confirmed that Dr. Cesar Morales is her PCP, states she still
uses [facility] as her pharmacy.
Jody goes to dialysis at [facility] in [place] T-Th-Sat at 10am. Daughter provides transportation for dialysis and is able to transfer Jody in/out of the car.
Jody will be discharged with a referral to [facility] for home PT
[2023-09-30] MEDS: COLACE 100 MG PO (12:21)
[2023-09-30] MEDS: PROTONIX 40 MG PO (12:22)
[2023-09-30] MEDS: CYMBALTA DELAYED RELEASE 60 MG PO (12:22)
[2023-09-30] MEDS: COREG 3.125 MG PO (12:23)
[2023-09-30] MEDS: ELIQUIS 5 MG PO (12:23)
[2023-09-30] MEDS: PHOSLO 1334 MG PO (12:23)
--- NOTE | 2023-09-30 12:25 | W.PN.HOSP.TC ---
Addendum entered and electronically signed by Cipriano Childress MD 10/02/23 17:47:
Sputum cultures with H. Influenzae; unknwon allergy to cephalosporin - Rx augmentin 7 days. educated on contacting pcp/pulm if no improvement
Addendum entered and electronically signed by Cipriano Childress MD 10/02/23 17:40:
[id number]
Original Note:
Today's Communication/Plan
-
azithromycin x 5 days
hd
f/u pcp, renal outpatient
Assessment / Plan
Assessment / Plan
Physical Exam
General: Well Developed, Well Nourished and No Apparent Distress
HEENT: NormoCephalic, Moist mucous membranes and Atraumatic
Respiratory: Crackles
Cardiac: S1/S2 and Regular Rhythm; No Murmur or Rub
GI: Soft, Non Tender, Non Distended and Normal Bowel Sounds; No Organomegaly
Rectal: Deferred by Provider
Musculoskeletal: No Clubbing, No Cyanosis and No Edema
Skin: No Rash
Neuro: Nonfocal/grossly intact
Psych: Calm
# cough/short of breath likely URI and fluid overload in setting of HD
#chronic hypoxic respiratory failure
#o2 dependant at home
-azithromycin x 3 days
-hd today
-plan for HD tomorrow
# End-stage renal disease/hyponatremia
-On dialysis Thursday
-Missed dialysis upon admission
-calcium acetate continued
-renal caps continued
-Nephrology consulted
-HD tomorrow
# Anemia of chronic kidney disease
-Hemoglobin 9.6
-No active bleeding
-Continue to monitor
#CHRONIC ATRIAL FIBRILLATION
-RETAIL SALESMAN Eliquis
-RETAIL SALESMAN Coreg
#ESSENTIAL HYPERTENSION
-RETAIL SALESMAN Coreg
#CHRONIC PAIN SYNDROME
-chronic back pain with 2 unsuccessful surgeries per daughter
-morphine continued
-lidocaine continued
-cont prn oxycodone
-duloxetine continued
-PT/OT
#GERD
-Protonix continued
#Hypothyroidism
-Continue levothyroxine
#Prior history of CVA
-Continue Eliquis
#hxt of COPD
-not in acute exacerbation
-nebs prn for sob/wheezing
#DVT prophylaxis with Eliquis
DNR/DNI
More than 30 minutes spent in discharge including
Final examination of the patient
Summarizing hospital stay
Instructions for continuing care to all relevant caregivers
Preparation of discharge records, prescriptions, and referral forms
Total time spent (35 in minutes):
Anticipated Discharge: Today
Subjective/Interval History
-
Date of Service: September 30, 2023
uri symptoms, otherwise no acute events. no resp distress
Objective Data
-
Labs:
Laboratory Results
09/30/23 09/30/23
06:00 08:43
WBC Cancelled 9.3
Hgb Cancelled 9.2 L
Hct Cancelled 27.4 L
Plt Count Cancelled 145
Sodium 127 L
Potassium 5.5 H
Chloride 90 L
Carbon Dioxide 24
BUN 79 H
Creatinine 8.5 H*
Glucose 99
Calcium 8.7
Total Bilirubin 1.2
AST 22
ALT < 10
Alkaline Phosphatase 142 H
Vital Signs:
Vital Signs
Temp Pulse Resp BP Pulse Ox
97.9 F 110 17 104/71 97
09/30/23 07:50 09/30/23 07:50 09/30/23 07:50 09/30/23 07:50 09/30/23 07:50
I&O
09/29/23 09/30/23 10/01/23
06:59 06:59 06:59
Intake Total 240 / 240
Balance 240 / 240
Review of Systems
-
History Source: Patient
All other systems: Not reviewed unless documented
Data Reviewed
-
Total Time Spent with Patient (in minutes): 56
Diagnostic Radiology: Image personally visualized and interpreted
Labs: Labs Reviewed by me (Today's labs pending still)
--- NOTE | 2023-09-30 12:42 | W.DS.TRANS ---
DC Summary - Interdisciplinary Professor
-
Discharge Instructions:
Sleep Apnea Risk Intermediate
Discharge Diagnosis/Procedures URI
HD
Diet Low Fat,Low Cholesterol,2 Gram Sodium
Activity As tolerated
Instructions:
Stand-Alone Forms:
Changes to Home Medications: Yes
Discharge Medications:
DC Medications w/original date entered in [employer]
levothyroxine 100 mcg tablet 100 mcg PO DAILY@0700 Thyroid 02/26/14
calcium acetate 667 mg tablet 1,334 mg PO BID Kidney Disease 11/26/20
duloxetine 30 mg capsule,delayed release 60 mg PO BID Neurological Condition 02/04/21
vitamin B complex and vitamin C no.20-folic acid 1 mg capsule (Renal Caps) 1 cap PO HS Kidney Disease 07/27/21
carvedilol 3.125 mg tablet 3.125 mg PO BID Heart Disease/Condition 03/05/22
apixaban 5 mg tablet (Eliquis) 5 mg PO BID Blood Clot Prevention/Tx 11/27/22
albuterol sulfate 2.5 mg/3 mL (0.083 %) solution for nebulization 2.5 mg inhalation R Q4HPRN PRN sob 12/11/22
docusate sodium 100 mg capsule (Colace) 100 mg PO DAILY Constipation 12/11/22
morphine 15 mg tablet,extended release 15 mg PO Q12H Pain 04/17/23
polyethylene glycol 3350 17 gram oral powder packet (Miralax) 17 g PO DAILY Constipation 04/17/23
omeprazole 20 mg capsule,delayed release 20 mg PO DAILY Gastrointestinal Issue 04/29/23
tolnaftate 1 % topical cream 1 applic topical BID PRN joint discomfort 04/29/23
ketoconazole 2 % topical cream 1 applic topical DAILY PRN rash on belly 06/20/23
lidocaine-prilocaine 2.5 %-2.5 % topical cream 1 applic topical DAILY PRN prior to port access 06/20/23
oxycodone 5 mg tablet 5 mg PO QID@08,14,20,0200 Pain 06/20/23
Medical Marijuana 1 applic topical DAILYPRN PRN mild pain 09/29/23
ipratropium 0.5 mg-albuterol 3 mg (2.5 mg base)/3 mL nebulization soln 3 ml inhalation R BIDPRN PRN sob 09/29/23
lorazepam 0.5 mg tablet 0.5 mg PO DAILYPRN PRN going for ct/mri test 09/29/23
azithromycin 500 mg tablet 500 mg PO DAILY 2 days #2 tabs 09/30/23
Home Medication Changes
azithromycin 500 mg tablet 500 mg PO DAILY 2 days #2 tabs 09/30/23
Pending Results: No
[2023-09-30 13:30] VITALS: BP 108/61
== END 2023-09-30 13:59 | disposition home health service (06) | DRG 152 ==
LOC: 2 SOUTH 14:43
PROVIDERS: Registered Nurse; Specialist; ADMITTING PHYSICIAN Internal Medicine; EMERGENCY PHYSICIAN Emergency Medicine; FAMILY PHYSICIAN Family Medicine; OTHER PHYSICIAN Specialist
PROC: 5A1D70Z Performance of Urinary Filtration, Intermittent, Less than 6 Hours Per Day (ICD-10-PCS; 2023-09-30)
DX: J06.9 Acute upper respiratory infection, unspecified (principal); I50.33 Acute on chronic diastolic (congestive) heart failure; N18.6 End stage renal disease; I13.2 Hypertensive heart and chronic kidney disease with heart failure and with stage 5 chronic kidney disease, or end stage renal disease; I48.20 Chronic atrial fibrillation, unspecified; E87.1 Hypo-osmolality and hyponatremia; J98.11 Atelectasis; J96.11 Chronic respiratory failure with hypoxia; F11.20 Opioid dependence, uncomplicated; C54.1 Malignant neoplasm of endometrium; J44.9 Chronic obstructive pulmonary disease, unspecified; D63.1 Anemia in chronic kidney disease; K21.9 Gastro-esophageal reflux disease without esophagitis; B96.3 Hemophilus influenzae [H. influenzae] as the cause of diseases classified elsewhere; F32.A Depression, unspecified; E03.9 Hypothyroidism, unspecified; E83.39 Other disorders of phosphorus metabolism; G89.4 Chronic pain syndrome; M19.90 Unspecified osteoarthritis, unspecified site; Z66 Do not resuscitate; Z79.01 Long term (current) use of anticoagulants; Z86.73 Personal history of transient ischemic attack (TIA), and cerebral infarction without residual deficits; Z99.81 Dependence on supplemental oxygen; Z99.2 Dependence on renal dialysis; Z87.891 Personal history of nicotine dependence; Z80.51 Family history of malignant neoplasm of kidney; Z87.442 Personal history of urinary calculi; Z79.890 Hormone replacement therapy; Z11.52 Encounter for screening for COVID-19; Z88.1 Allergy status to other antibiotic agents; Z88.8 Allergy status to other drugs, medicaments and biological substances; Z91.048 Other nonmedicinal substance allergy status; Z95.828 Presence of other vascular implants and grafts; Z91.158 Patient's noncompliance with renal dialysis for other reason
CPT/HCPCS: 71046; 80053; 80061; 82248; 83605; 83735; 83880; 84132; 84443; 85025; 85027; 87040; 87070; 87077; 87185; 87205; 87502; 87811; 93005; 94640; 99285; G0257; P9047; Q5106

== ENCOUNTER 2023-11-19 10:00 | Emergency (ER) | payer OTHER, SELFPAY ==
[2023-11-19 10:11] VITALS: BP 136/78
[2023-11-19 10:48] VITALS: BMI 41.5
[2023-11-19 11:00] VITALS: BP 100/56
--- NOTE | 2023-11-19 11:15 | ED.GENMED ---
History of Present Illness
General
Chief Complaint: Heart Rate Problem
Source: patient and family
Exam Limitations: none
Time Seen by Provider: 11/19/23 11:03
Nursing documentation reviewed up to this point in time: agreed with
Travel History
Have you had any contact with someone who has COVID-19?: No
Do you have any symptoms of coronavirus? Fever > 100 degrees, chills, cough, shortness of breath, sore throat, loss of taste or smell, muscle aches, or headache?: No
History of Present Illness
History of Present Illness:
78-year-old female presents emergency department complaining of bleeding from her left ear. She picked her ear and noticed something black looked like a bug. Bleeding began increasing today. She takes Eliquis for atrial fibrillation.
Past History
Past History
ED Past Medical History: Arrthythmia (Atrial fib), CHF, COPD, HTN, Renal failure, Hypothyroidism, Psychiatric (Depression) and Other (Chronic back pain, kidney stones, arthritis)
ED Past Surgical History: Cholecystectomy and Orthopedic (Left arm Carpal tunnel surgery, laminectomy L5 , and again for scar tissue)
Social History
Tobacco: Former smoker
Alcohol: None
Drug: None
Personal:
Living: with family
Employment: Retired
Family History
Family History: Other (Mother with kidney cancer)
Review of Systems
Review of Systems
Allergies reviewed?: Yes
All Other Systems: Not applicable
Constitutional: Reports no symptoms
EENT: Reports other (left ear bleeding)
Respiratory: Reports no symptoms
Cardiac: Reports no symptoms
ABD/GI: Reports no symptoms
: Reports no symptoms
Musculoskeletal: Reports no symptoms
Skin: Reports no symptoms
Neurological: Reports no symptoms
Endocrine: Reports no symptoms
Hematologic/Lymphatic: Reports bleeding
Psychiatric: Reports no symptoms
Phy Exam
Physical Exam
Physical Exam:
Physical Exam
General: no apparent distress, not acutely ill
Neck: supple. no meningeal signs. normal posterior pharynx
Heart: s1/s2 irregular rhythm no murmur. equal radial
pulses.
HEENT: Pupils equal round reactive to light, EOMI, small abrasion left external auditory canal, no tympanic membrane perforation
Lungs: no acute respiratory distress. clear bilaterally
Abdomen: normal bowel sounds. not tender. no CVAT
Neuro: alert and oriented. no focal neurological deficits cranial nerves II through XII intact
Skin: no rash
Psychiatric: well kept. interactive and cooperative
Extremities: no edema. no calf tenderness. negative homans. good distal pulses
Course
Orders/Labs/Results
Orders:
Orders
11/19/23 10:16
Electrocardiogram (*1) Urgent
Reason for Study: Atrial Fibrillation
EKG- Treatment ONCE
11/19/23 13:00
Oxymetazoline HCl [Afrin Nasal [place]] See Dose Instructions S ONCE ONE
Vital Signs
Initial and Last Documented VS:
Initial Vital Signs
Temp Pulse Resp BP Pulse Ox
98.2 F 128 16 136/78 98
11/19/23 10:11 11/19/23 10:11 11/19/23 10:11 11/19/23 10:11 11/19/23 10:11
Last Documented Vital Signs
Temp Pulse Resp BP Pulse Ox
98.5 F 94 18 126/59 96
11/19/23 14:14 11/19/23 14:14 11/19/23 14:14 11/19/23 14:14 11/19/23 14:14
MDM/Problems Addressed
Differential Diagnosis Includes:
rapid atrial fibrillation, left ear canal abrasion
MDM/Problems Addressed:
78-year-old female with atrial fibrillation, rate controlled, left ear canal abrasion, bleeding controlled. Slight ooze. Stable for discharge. Afrin applied.
Chronic conditions affecting care: Arrhythmia
Acute Exacerbation and/or Progression of Chronic Illness: Arrhythmia and Other (Anticoagulation state)
*Pulse Oximetry
Patient hypoxic: no
*EKG
Interpreted by ED Provider?: NA
*[employer] Supervisor Interpretation
Rate: [employer] Supervisor- N/A
*Critical Care Note
Total Time (30-74mins, 75-104mins- exclusive of procedures): Not Applicable
Patient Management
Social determinants of health affecting care: Strong social support
Escalation/DeEscalation of care consider admission/obs:
Admit not indicated
ED Attending Note
-
Portions of this chart may have been created with voice recognition software.� Occasional wrong word or��sound alike� substitutions may have occurred due to the inherent limitations of voice recognition software.
Discharge Plan
Departure
Patient Disposition: Home (Routine Discharge)
Date of Disposition: 11/19/23
Time of Disposition: 14:19
Patient with high blood pressure during this ER visit?: Yes
Condition: Good
Discharge Problem:
Abrasion of left ear canal, Atrial fibrillation, chronic
Instructions: Atrial Fibrillation (DC), BLOOD PRESSURE
Prescriptions:
No Action
levothyroxine 100 MCG tablet
100 mcg PO DAILY@0700
calcium acetate 667 MG tablet
1,334 mg PO BID
Patient Comments:
06/20/2023: PRESCRIBED WITH MEALS, BUT PT DOESN'T ALWAYS EAT 3 MEALS
duloxetine 30 MG capsule,delayed release(DR/EC)
60 mg PO BID
Renal Caps 1 CAPSULE capsule
1 cap PO HS
carvedilol 3.125 mg Tablet
3.125 mg PO BID
Eliquis 5 MG tablet
5 mg PO BID
albuterol sulfate 2.5 mg /3 mL (0.083 %) Solution For Nebulization
2.5 mg INHALATION R Q4HPRN PRN (Reason: sob)
docusate sodium [Colace] 100 mg Capsule
100 mg PO DAILY
morphine 15 mg Tablet Extended Release
15 mg PO Q12H
polyethylene glycol 3350 [Miralax] 17 gram Powder In Packet
17 g PO DAILY
tolnaftate 1 % Cream
1 applic TOPICAL BID PRN (Reason: joint discomfort)
omeprazole 20 mg Capsule,Delayed Release(Dr/Ec)
20 mg PO DAILY
lidocaine-prilocaine 2.5-2.5 % cream
1 applic topical DAILY PRN (Reason: prior to port access)
ketoconazole 2 % cream
1 applic TOPICAL DAILY PRN (Reason: rash on belly)
oxycodone 5 mg tablet
5 mg PO QID@08,14,,0200
Patient Comments:
06/20/2023: last filled 05/27/23, 90 tabs for 30 days from [id number]
ipratropium-albuterol 0.5 mg-3 mg(2.5 mg base)/3 mL Solution For Nebulization
3 ml INHALATION R BIDPRN PRN (Reason: sob)
lorazepam 0.5 mg Tablet
0.5 mg PO DAILYPRN PRN (Reason: going for ct/mri test)
Medical Marijuana
1 applic topical DAILYPRN PRN (Reason: mild pain)
Referrals:
Gary Granger MD [Active] - Keep scheduled appt
Cesar Whitmore MD [Family Provider] -
Jose Forte MD [Active] - Call in 1-3 days for appt
Activity Restrictions/Additional Instructions:
Use Afrin spray left for the next several days. Return for any concerns.
Interventions
Interventions:
*Risk Screen - Suicide Last Done: 11/19/23 10:11
*General Assessment Last Done: 11/19/23 10:11
*Neglect/Abuse Screening Last Done: 11/19/23 10:11
ED- Fall Risk Assessment Last Done: 11/19/23 10:48
ED- Cardiac Assessment Last Done: 11/19/23 10:48
ED- Pulmonary Assessment Last Done: 11/19/23 10:48
Discharge Date and Time
Print Language: [place]
[2023-11-19 12:00] VITALS: BP 109/70
[2023-11-19 13:00] VITALS: BP 100/56
[2023-11-19] MEDS: AFRIN NASAL SPRAY 60 SPRAYS S (13:35)
[2023-11-19 14:00] VITALS: BP 126/59
--- NOTE | 2023-11-19 14:13 | EDRN ---
Dr. Degroot currently at the pts bedside speaking with the pt and the pts family
[2023-11-19 14:14] VITALS: BP 126/59
== END 2023-11-19 14:49 | disposition home or self-care (01) ==
LOC: EMR 10:00
PROVIDERS: EMERGENCY PHYSICIAN Emergency Medicine; FAMILY PHYSICIAN Family Medicine
DX: S00.412A Abrasion of left ear, initial encounter (principal); I48.20 Chronic atrial fibrillation, unspecified; X58.XXXA Exposure to other specified factors, initial encounter; I48.91 Unspecified atrial fibrillation; I11.0 Hypertensive heart disease with heart failure; I50.9 Heart failure, unspecified; E03.9 Hypothyroidism, unspecified; F32.A Depression, unspecified; G89.29 Other chronic pain; J44.9 Chronic obstructive pulmonary disease, unspecified
CPT/HCPCS: 99283; 93005

== ENCOUNTER → 2023-11-26 10:20 | Emergency (ER) | payer OTHER, SELFPAY ==
[2023-11-26 10:31] VITALS: BP 120/75
--- NOTE | 2023-11-26 12:19 | ED.GENMED ---
History of Present Illness
General
Chief Complaint: Post Operative Problem(s)
Source: patient and family
Exam Limitations: none
Time Seen by Provider: 11/26/23 10:40
Nursing documentation reviewed up to this point in time: agreed with
History of Present Illness
History of Present Illness:
78-year-old female with past ministry of A-fib currently on Eliquis presenting to the emergency department after she tried to remove an ingrown toenail from the left great toe has been bleeding since. Denies any lightheadedness chest pain shortness
of breath. She did place a pressure bandage over the area which has been helping
Past History
Past History
ED Past Medical History: Arrthythmia (Atrial fib), CHF, COPD, HTN, Renal failure, Hypothyroidism, Psychiatric (Depression) and Other (Chronic back pain, kidney stones, arthritis)
ED Past Surgical History: Cholecystectomy and Orthopedic (Left arm Carpal tunnel surgery, laminectomy L5 , and again for scar tissue)
Social History
Tobacco: Former smoker
Alcohol: None
Drug: None
Personal:
Living: with family
Employment: Retired
Family History
Family History: Other (Mother with kidney cancer)
Review of Systems
Review of Systems
Allergies reviewed?: Yes
All Other Systems: ROS reviewed and negative except as documented in HPI and ROS
Phy Exam
Physical Exam
Physical Exam:
GENERAL: Alert , in no apparent distress
EYE: pupils equal and reactive
NECK: Supple, no significant adenopathy.
ENT: o/p clr, mmm.
CARDIAC: Regular rate and rhythm .
LUNGS: Clear breath sounds bilaterally, no acute respiratory distress, no wheezes/rales/rhonchi
ABDOMEN: Soft, without focal tenderness, no r/g, no cvat
NEUROLOGICAL: Alert and oriented, no focal neuro deficits
SKIN: Bleeding area skin avulsion to the left distal great toe. Good cap refill surrounding warm and dry, skin intact.
MUSCULOSKELETAL: No edema, well perfused.
PSYCH: Normal and appropriate interaction.
Course
Vital Signs
Initial and Last Documented VS:
Initial Vital Signs
Temp Pulse Resp BP Pulse Ox
98.7 F 117 18 120/75 99
11/26/23 10:31 11/26/23 10:31 11/26/23 10:31 11/26/23 10:31 11/26/23 10:31
Last Documented Vital Signs
Temp Pulse Resp BP Pulse Ox
98.7 F 117 18 120/75 99
11/26/23 10:31 11/26/23 10:31 11/26/23 10:31 11/26/23 10:31 11/26/23 10:31
Procedures
Laceration Closure
Left Distal First Toe:
Status of Wound: clean
Size of Wound in cm: 1
Description of Wound Edges: ragged
Preparation: cleaned with saline
Revision/Debridement: routine- no revision and irrigate-direct pressure
Wound exploration: explored to base- no FB and no tendon involvement
Type of Closure: Dermabond-skin glue
MDM/Problems Addressed
MDM/Problems Addressed:
78-year-old female presenting to the emergency department today with concerns of bleeding from an area where she removed an ingrown toenail yesterday. Ongoing bleeding since currently on Eliquis for A-fib. There is a small area of bleeding the
area was cleaned thoroughly tourniquet was placed and Dermabond was placed to control the bleeding this controlled the bleeding well bandage was placed otherwise patient tolerated well and no distress area appears very clean she was advised to keep
a close eye on the area for potential infection return precautions given.
*Critical Care Note
Total Time (30-74mins, 75-104mins- exclusive of procedures): Not Applicable
ED Attending Note
-
Portions of this chart may have been created with voice recognition software.� Occasional wrong word or��sound alike� substitutions may have occurred due to the inherent limitations of voice recognition software.
Discharge Plan
Departure
Patient Disposition: Home (Routine Discharge)
Date of Disposition: 11/26/23
Time of Disposition: 12:19
Patient with high blood pressure during this ER visit?: No
Condition: Good
Covid-19: Not Applicable
Discharge Problem:
Nontraumatic subungual hemorrhage of toe
Instructions: Wound Care (DC)
Prescriptions:
No Action
levothyroxine 100 MCG tablet
100 mcg PO DAILY@0700
calcium acetate 667 MG tablet
1,334 mg PO BID
Patient Comments:
06/20/2023: PRESCRIBED WITH MEALS, BUT PT DOESN'T ALWAYS EAT 3 MEALS
duloxetine 30 MG capsule,delayed release(DR/EC)
60 mg PO BID
Renal Caps 1 CAPSULE capsule
1 cap PO HS
carvedilol 3.125 mg Tablet
3.125 mg PO BID
Eliquis 5 MG tablet
5 mg PO BID
albuterol sulfate 2.5 mg /3 mL (0.083 %) Solution For Nebulization
2.5 mg INHALATION R Q4HPRN PRN (Reason: sob)
docusate sodium [Colace] 100 mg Capsule
100 mg PO DAILY
morphine 15 mg Tablet Extended Release
15 mg PO Q12H
polyethylene glycol 3350 [Miralax] 17 gram Powder In Packet
17 g PO DAILY
tolnaftate 1 % Cream
1 applic TOPICAL BID PRN (Reason: joint discomfort)
omeprazole 20 mg Capsule,Delayed Release(Dr/Ec)
20 mg PO DAILY
lidocaine-prilocaine 2.5-2.5 % cream
1 applic topical DAILY PRN (Reason: prior to port access)
ketoconazole 2 % cream
1 applic TOPICAL DAILY PRN (Reason: rash on belly)
oxycodone 5 mg tablet
5 mg PO QID@08,14,20,0200
Patient Comments:
06/20/2023: last filled 05/27/23, 90 tabs for 30 days from [id number]
ipratropium-albuterol 0.5 mg-3 mg(2.5 mg base)/3 mL Solution For Nebulization
3 ml INHALATION R BIDPRN PRN (Reason: sob)
lorazepam 0.5 mg Tablet
0.5 mg PO DAILYPRN PRN (Reason: going for ct/mri test)
Medical Marijuana
1 applic topical DAILYPRN PRN (Reason: mild pain)
Referrals:
Cesar Whitmore MD [Family Provider] -
Cameron Saldana DPM [Specified Professional Personl] - Follow up in 5-7 days
Activity Restrictions/Additional Instructions:
You came to the emergency department today with concerns of bleeding from your toe. This was controlled with Dermabond. Please keep the area clean and covered and follow-up closely with a multineedle shirrer in the future. Return to the emergency
department for any worsening, new or concerning symptoms.
Interventions
Interventions:
*Risk Screen - Suicide Last Done: 11/26/23 11:12
*General Assessment Last Done: 11/26/23 12:35
*Neglect/Abuse Screening Last Done: 11/26/23 11:12
ED- Fall Risk Assessment Last Done: 11/26/23 11:12
*Nursing Disposition Last Done: 11/26/23 12:35
ED-Skin Assessment Last Done: 11/26/23 11:12
Discharge Date and Time
Print Language: WEL[place]
== END | disposition home or self-care (01) ==
LOC: EMR 10:20
PROVIDERS: EMERGENCY PHYSICIAN Emergency Medicine; FAMILY PHYSICIAN Family Medicine
DX: L60.8 Other nail disorders (principal); I48.91 Unspecified atrial fibrillation; Z79.01 Long term (current) use of anticoagulants; I11.0 Hypertensive heart disease with heart failure; I50.9 Heart failure, unspecified; J44.9 Chronic obstructive pulmonary disease, unspecified; E03.9 Hypothyroidism, unspecified; F32.A Depression, unspecified; G89.29 Other chronic pain; Z87.442 Personal history of urinary calculi; Z87.891 Personal history of nicotine dependence; Z90.49 Acquired absence of other specified parts of digestive tract
CPT/HCPCS: 99282; 12001